=== PATIENT | female | born 1990 | race African-American/Black ===

== ENCOUNTER 2018-06-26 07:30 | Emergency (ER) | payer OTHER ==
[2018-06-26 07:45] VITALS: TEMP 98.5; BMI 29.2
[2018-06-26] MEDS ORDERED: METOCLOPRAMIDE HCL INJECTION 10 MG/2 ML VIAL IVPB ONE (08:49)
[2018-06-26] MEDS ORDERED: SODIUM CHLORIDE 1,000 ML IV STA (08:49)
--- NOTE | 2018-06-26 09:06 | PDOC ---
*Physical Exam - Vital Signs Last Vital Signs Temp Pulse Resp BP Pulse Ox 98.5 F 88 16 137/84 97 06/26/18 07:33 06/26/18 07:33 06/26/18 07:33 06/26/18 07:33 06/26/18 07:33 - Physical Exam Comments: 06/26/18 09:05 The patient was examined by [CATRACHO Bernabe] under my direct supervision. I personally evaluated the patient. I concur with the above findings and the plan of care. ED Treatment Course - LABORATORY CBC & Chemistry Diagram: 06/26/18 09:30 06/26/18 09:30 *DC/Admit/Observation/Transfer Diagnosis at time of Disposition: Hyperemesis - Discharge Dispostion Disposition: HOME Condition at time of disposition: Improved - Prescriptions Prescriptions: Metoclopramide HCl [Reglan] 10 mg PO Q8H #8 tablet - Referrals Referrals: Bouchra Morales MD [Primary Care Provider] - - Patient Instructions Printed Discharge Instructions: Hyperemesis Gravidarum Additional Instructions: Take medication as prescribed and follow-up with your OB in 2 days at next scheduled appointment - Post Discharge Activity
[2018-06-26] MEDS ORDERED: METOCLOPRAMIDE HCL INJECTION 10 MG/2 ML VIAL ONE (09:08)
--- NOTE | 2018-06-26 09:21 | PDOC ---
History of Present Illness - General Chief Complaint: Nausea/Vomiting Stated Complaint: NAUSEA/ 2 MONTHS Time Seen by Provider: 06/26/18 08:10 History Source: Patient - History of Present Illness Timing/Duration: reports: other Severity: Yes: severe Past History - Past Medical History Allergies/Adverse Reactions: Allergies Allergy/AdvReac Type Severity Reaction Status Date / Time No Known Drug Allergies Allergy Verified 06/26/18 07:32 Home Medications: Ambulatory Orders Albuterol Sulfate Inhaler - [Ventolin HFA Inhaler -] 1 puff IH ASDIR PRN Acetaminophen [Tylenol .Regular Strength -] 650 mg PO Q4H PRN #1 tablet Folic Acid 1 mg PO DAILY 06/26/18 Metoclopramide HCl [Reglan] 10 mg PO Q8H #8 tablet 06/26/18 Anemia: No Asthma: Yes Cancer: No Cardiac Disorders: No COPD: No Diabetes: No HTN: No Seizures: No Thyroid Disease: No - Reproductive History (#): 2 Para: 1 Spontaneous : 1 - Immunization History Immunization Up to Date: Yes - Suicide/Smoking/Psychosocial Hx Smoking Status: Yes Smoking History: Never smoked Have you smoked in the past 12 months: No Number of Cigarettes Smoked Daily: 0 Information on smoking cessation initiated: No Hx Alcohol Use: No Drug/Substance Use Hx: No Substance Use Type: None Hx Substance Use Treatment: No Review of Systems - Review of Systems Constitutional: No: Chills, Fever ABD/GI: Yes: Nausea, Vomiting. No: Diarrhea, Abdominal cramping : No: Burning, Dysuria, Discharge, Flank Pain, Hematuria *Physical Exam - Vital Signs Last Vital Signs Temp Pulse Resp BP Pulse Ox 98.5 F 88 16 137/84 97 06/26/18 07:33 06/26/18 07:33 06/26/18 07:33 06/26/18 07:33 06/26/18 07:33 - Physical Exam General Appearance: Yes: Appropriately Dressed. No: Apparent Distress HEENT: positive: Normal Voice Neck: positive: Supple Gastrointestinal/Abdominal: negative: Tender Integumentary: positive: Dry, Warm Neurologic: positive: Fully Oriented, Alert, Normal Mood/Affect ED Treatment Course - LABORATORY CBC & Chemistry Diagram: 06/26/18 09:30 06/26/18 09:30 Medical Decision Making - Medical Decision Making 06/26/18 08:57 28-year-old female, (s/p 1 elec AB), ~2 months , here with nausea, vomiting. Patient states for the past 3 weeks has had nausea, not improving with diclegis prescribed by her OB. Last night symptoms worsened and had intractable vomiting. Now feels dehydrated. Denies abdominal pain, vaginal bleeding or dysuria. States her OB is currently in the process of arranging for nausea pump as this sig helped in prior See exam Hyperemesis gravidarum Stable No issues w/ preg otherwise -labs -IVF -reglan -reassess 06/26/18 11:56 Labs unremarkable. Patient reports feeling significantly better after meds and able to tolerate po here. Feels well enough to go home. Prescription for small dose of reglan sent to pharmacy. Patient now informs me that her next OB appointment is in 2 days, will follow up *DC/Admit/Observation/Transfer Diagnosis at time of Disposition: Hyperemesis - Discharge Dispostion Disposition: HOME Condition at time of disposition: Improved - Prescriptions Prescriptions: Metoclopramide HCl [Reglan] 10 mg PO Q8H #8 tablet - Referrals Referrals: Bouchra Morales MD [Primary Care Provider] - - Patient Instructions Printed Discharge Instructions: Hyperemesis Gravidarum Additional Instructions: Take medication as prescribed and follow-up with your OB in 2 days at next scheduled appointment - Post Discharge Activity
[2018-06-26 09:36] LABS: BASO % 0.3 % (0-2.0); EOS % 0.1 % (0-4.5); HEMATOCRIT 37.3 % (32.4-45.2); HEMOGLOBIN 12.6 GM/dL (10.7-15.3); LYMPH % 10.1 % (8-40); MCHC 33.8 g/dl (32.0-36.0); MEAN PLT VOLUME 8.8 fl (7.5-11.1); MONO % 5.3 % (3.8-10.2); NEUT % 84.2 % (42.8-82.8); PLATELET COUNT 279 K/MM3 (134-434); RBC 4.19 M/mm3 (3.60-5.2); RDW 13.4 % (11.6-15.6); WHITE BLOOD COUNT 9.9 K/mm3 (4.0-10.0)
[2018-06-26 10:03] LABS: ALBUMIN 3.6 g/dl (3.4-5.0); ALK PHOS 72 U/L (45-117); ANION GAP 7 MMOL/L (8-16); BILIRUBIN,TOTAL 0.8 mg/dL (0.2-1); BLOOD UREA NITROGEN 7 mg/dL (7-18); CALCIUM 9.1 mg/dL (8.5-10.1); CHLORIDE 105 mmol/L (98-107); CO2 26 mmol/L (21-32); CREATININE 0.5 mg/dL (0.55-1.3); GLUCOSE,RANDOM 119 mg/dL (74-106); POTASSIUM 3.9 mmol/L (3.5-5.1); SGOT/AST 17 U/L (15-37); SGPT/ALT 23 U/L (13-61); SODIUM 137 mmol/L (136-145); TOT PROT 7.5 g/dl (6.4-8.2)
[2018-06-26 10:06] LABS: PH,URINE 5.5 (5.0-8.0); URINE APPEARANCE CLEAR; URINE BACTERIA 190.5 /hpf (NEGATIVE); URINE BILIRUBIN NEGATIVE (NEGATIVE); URINE CASTS 8 /hpf (0-8); URINE COLOR YELLOW; URINE GLUCOSE (UA) NEGATIVE (NEGATIVE); URINE KETONE 3+ (NEGATIVE); URINE LEUK ESTERASE NEGATIVE (NEGATIVE); URINE NITRITE NEGATIVE (NEGATIVE); URINE PROTEIN 1+ (NEGATIVE); URINE RBC 7 /hpf (0-4); URINE WBC 4 /hpf (0-5)
[2018-06-26 12:32] VITALS: BP 145/80; PULSE 86
== END 2018-06-26 12:27 | disposition home or self-care (01) ==
LOC: JER 07:30
PROC: 3E033GC Introduction of Other Therapeutic Substance into Peripheral Vein, Percutaneous Approach (ICD-10-PCS; principal; 2018-06-26)
PROC: 3E0337Z Introduction of Electrolytic and Water Balance Substance into Peripheral Vein, Percutaneous Approach (ICD-10-PCS; 2018-06-26)
DX: O26.892 Other specified pregnancy related conditions, second trimester (principal); Z3A.08 8 weeks gestation of pregnancy; O26.891 Other specified pregnancy related conditions, first trimester; R11.10 Vomiting, unspecified
CPT/HCPCS: 36415; 80053; 81003; 85025; 99282-25; J7030

== ENCOUNTER 2018-06-28 07:15 | Emergency (ER) | payer OTHER ==
[2018-06-28 07:28] VITALS: PULSE 65; BMI 29.2
[2018-06-28] MEDS ORDERED: SODIUM CHLORIDE 1,000 ML IV STA ×3 (07:47→11:09)
[2018-06-28] MEDS ORDERED: ONDANSETRON 4 MG/2 ML VIAL IVPUSH ONE (07:47)
[2018-06-28] MEDS ORDERED: ONDANSETRON 4 MG/2 ML VIAL ONE (07:50)
[2018-06-28 08:12] LABS: BASO % 0.2 % (0-2.0); EOS % 0.6 % (0-4.5); HEMATOCRIT 39.5 % (32.4-45.2); HEMOGLOBIN 12.9 GM/dL (10.7-15.3); LYMPH % 10.4 % (8-40); MCH 29.5 pg (25.7-33.7); MCHC 32.7 g/dl (32.0-36.0); MEAN CELL VOLUME 90.1 fl (80-96); NEUT % 82.8 % (42.8-82.8); PLATELET COUNT 274 K/MM3 (134-434); RBC 4.39 M/mm3 (3.60-5.2); RDW 13.8 % (11.6-15.6); WHITE BLOOD COUNT 12.2 K/mm3 (4.0-10.0)
[2018-06-28 08:48] LABS: ALBUMIN 3.8 g/dl (3.4-5.0); ALK PHOS 71 U/L (45-117); ANION GAP 11 MMOL/L (8-16); BILIRUBIN,TOTAL 1.4 mg/dL (0.2-1); BLOOD UREA NITROGEN 10 mg/dL (7-18); CALCIUM 9.8 mg/dL (8.5-10.1); CHLORIDE 102 mmol/L (98-107); CO2 25 mmol/L (21-32); CREATININE 0.6 mg/dL (0.55-1.3); GLUCOSE,RANDOM 124 mg/dL (74-106); MAGNESIUM 2.6 mg/dL (1.8-2.4); POTASSIUM 3.5 mmol/L (3.5-5.1); SGOT/AST 20 U/L (15-37); SGPT/ALT 26 U/L (13-61); SODIUM 138 mmol/L (136-145); TOT PROT 8.1 g/dl (6.4-8.2)
[2018-06-28 08:50] LABS: PH,URINE 5.5 (5.0-8.0); URINE APPEARANCE CLOUDY; URINE BILIRUBIN 1+ (NEGATIVE); URINE COLOR DK YELLOW; URINE GLUCOSE (UA) NEGATIVE (NEGATIVE); URINE KETONE 3+ (NEGATIVE); URINE LEUK ESTERASE NEGATIVE (NEGATIVE); URINE NITRITE NEGATIVE (NEGATIVE); URINE PROTEIN TRACE (NEGATIVE)
--- NOTE | 2018-06-28 10:03 | PDOC ---
History of Present Illness - General Chief Complaint: Nausea/Vomiting Stated Complaint: NAUSEA,VOMITING Time Seen by Provider: 06/28/18 07:45 History Source: Patient Exam Limitations: No Limitations - History of Present Illness Travel History: No Initial Comments: 06/28/18 09:55 28 y/o female currently 8 weeks presents to the ED with c/o continual n /v and weakness. Pt was seen here a few days ago for the same, was gov med, and d/c'd home. Pt states is pending anti-emetic infusion by her BUSINESS LINE MANAGER which should be set up in the next upcoming days. Pt has no abd pain, fever, urinary or back complaints. Pt states had exact s/s with previous pregnancies. Timing/Duration: reports: constant (nausea, intermittent nausea) Pain Radiation: denies: no radiation Activities at Onset: reports: none Aggravating Factors: improves with: None Alleviating Factors: improves with: None Past History - Travel Traveled outside of the country in the last 30 days: No Close contact w/someone who was outside of country & ill: No - Past Medical History Allergies/Adverse Reactions: Allergies Allergy/AdvReac Type Severity Reaction Status Date / Time No Known Drug Allergies Allergy Verified 06/28/18 07:25 Home Medications: Ambulatory Orders Albuterol Sulfate Inhaler - [Ventolin HFA Inhaler -] 1 puff IH ASDIR PRN Acetaminophen [Tylenol .Regular Strength -] 650 mg PO Q4H PRN #1 tablet Folic Acid 1 mg PO DAILY 06/26/18 Metoclopramide HCl [Reglan] 10 mg PO Q8H #8 tablet 06/26/18 Anemia: No Asthma: No Cancer: No Cardiac Disorders: No COPD: No Diabetes: No HTN: No Seizures: No Thyroid Disease: No - Reproductive History (#): 2 Para: 1 Spontaneous : 1 - Immunization History Immunization Up to Date: Yes - Suicide/Smoking/Psychosocial Hx Smoking Status: Yes Smoking History: Never smoked Have you smoked in the past 12 months: No Number of Cigarettes Smoked Daily: 0 Hx Alcohol Use: No Drug/Substance Use Hx: No Substance Use Type: None Hx Substance Use Treatment: No Patient Lives Alone: No Lives with/in: spouse/SO Review of Systems - Review of Systems Able to Perform ROS?: Yes Constitutional: Yes: Weakness HEENTM: No: Symptoms Reported Respiratory: No: Symptoms reported Cardiac (ROS): No: Symptoms Reported ABD/GI: Yes: Nausea, Poor Appetite, Poor Fluid Intake, Vomiting Musculoskeletal: No: Symptoms Reported Integumentary: No: Symptoms Reported Neurological: No: Symptoms reported Endocrine: No: Symptoms Reported *Physical Exam - Vital Signs Last Vital Signs Temp Pulse Resp BP Pulse Ox 98.2 F 65 17 135/82 99 06/28/18 07:25 06/28/18 07:25 06/28/18 07:25 06/28/18 07:25 06/28/18 07:25 - Physical Exam General Appearance: Yes: Nourished, Appropriately Dressed. No: Apparent Distress HEENT: positive: EOMI, LEV, TMs Normal, Pharynx Normal (dry) Neck: positive: Supple Respiratory/Chest: positive: Lungs Clear, Normal Breath Sounds. negative: Respiratory Distress Cardiovascular: positive: Regular Rhythm, Regular Rate. negative: Murmur Gastrointestinal/Abdominal: positive: Soft. negative: Tenderness Musculoskeletal: negative: CVA Tenderness Extremity: positive: Normal Capillary Refill. negative: Pedal Edema Integumentary: positive: Normal Color, Warm, Moist Neurologic: positive: Motor Strength 5/5 (ambulatory) ED Treatment Course - LABORATORY CBC & Chemistry Diagram: 06/28/18 07:54 06/28/18 07:54 - ADDITIONAL ORDERS Additional order review: Laboratory Results 06/28/18 06/28/18 07:54 07:49 Sodium 138 Potassium 3.5 Chloride 102 Carbon Dioxide 25 Anion Gap 11 BUN 10 Creatinine 0.6 Creat Clearance w eGFR 119.04 Random Glucose 124 H Calcium 9.8 Magnesium 2.6 H Total Bilirubin 1.4 H AST 20 ALT 26 Alkaline Phosphatase 71 Total Protein 8.1 Albumin 3.8 Urine Color Dk yellow Urine Appearance Cloudy Urine pH 5.5 Ur Specific [place] 1.026 Urine Protein Trace Urine Glucose (UA) Negative Urine Ketones 3+ H Urine Blood Negative Urine Nitrite Negative Urine Bilirubin 1+ H Urine Urobilinogen 1.0 Ur Leukocyte Esterase Negative 06/28/18 07:54 RBC 4.39 MCV 90.1 MCHC 32.7 RDW 13.8 MPV 9.0 Neutrophils % 82.8 Lymphocytes % 10.4 Monocytes % 6.0 Eosinophils % 0.6 D Basophils % 0.2 - Medications Given in the ED: ED Medications Discontinued Medications Generic Name Dose Route Start Last Admin Trade Name Dorian PRN Reason Stop Dose Admin Sodium Chloride 1,000 mls @ 1,000 mls/hr 06/28/18 07:47 06/28/18 08:06 Normal Saline - IV 06/28/18 08:46 1,000 mls/hr ASDIR STA Administration Sodium Chloride 1,000 mls @ 1,000 mls/hr 06/28/18 07:57 06/28/18 09:14 Normal Saline - IV 06/28/18 08:56 1,000 mls/hr ASDIR STA Administration Ondansetron HCl 4 mg 06/28/18 07:47 06/28/18 08:06 Zofran Injection IVPUSH 06/28/18 07:48 4 mg ONCE ONE Administration Medical Decision Making - Medical Decision Making 06/28/18 10:05 CC: n/v, poor appetite, 2 months Exam: pt appears dry and is actively heaving upon my arrival Plan: labs, urine, ivf, antiemetics 06/28/18 10:08 Laboratory Tests 06/28/18 06/28/18 06/28/18 07:49 07:54 07:54 WBC 12.2 H Hgb 12.9 Hct 39.5 Absolute Neuts (auto) 10.1 H Sodium 138 Anion Gap 11 Creatinine 0.6 Random Glucose 124 H Calcium 9.8 Total Bilirubin 1.4 H ALT 26 Alkaline Phosphatase 71 Total Protein 8.1 Albumin 3.8 Urine Color Dk yellow Urine Appearance Cloudy Urine pH 5.5 Ur Specific [place] 1.026 Urine Protein Trace Urine Glucose (UA) Negative Urine Ketones 3+ H Urine Blood Negative Urine Nitrite Negative Urine Bilirubin 1+ H Ur Leukocyte Esterase Negative 06/28/18 10:09 Lipase added, No active vomiting noted 06/28/18 11:37 Pt ordered for 3ltr along with reglan 06/28/18 13:37 With Reglan patient states feeling much better. Patient tolerating ice chips and apple juice. Discharge home with Reglan when necessary until she starts the infusion program *DC/Admit/Observation/Transfer Diagnosis at time of Disposition: Hyperemesis - Discharge Dispostion Disposition: HOME Condition at time of disposition: Improved - Referrals Referrals: Bouchra Morales MD [Primary Care Provider] - - Patient Instructions Printed Discharge Instructions: DI for Hyperemesis Gravidarum Additional Instructions: Eat small frequent meals throughout the day. avoid spicy greasy and acidy food. Use Reglan as needed for nausea. - Post Discharge Activity
[2018-06-28 10:21] LABS: LIPASE 240 U/L (73-393)
[2018-06-28] MEDS ORDERED: METOCLOPRAMIDE HCL INJECTION 10 MG/2 ML VIAL ONE (11:03)
[2018-06-28] MEDS ORDERED: METOCLOPRAMIDE HCL INJECTION 10 MG/2 ML VIAL IVPB ONE (11:09)
[2018-06-28 13:12] VITALS: BP 131/73; TEMP 98.1
== END 2018-06-28 14:08 | disposition home or self-care (01) ==
LOC: JER 07:15
PROC: 3E0337Z Introduction of Electrolytic and Water Balance Substance into Peripheral Vein, Percutaneous Approach (ICD-10-PCS; principal; 2018-06-28)
PROC: 3E033GC Introduction of Other Therapeutic Substance into Peripheral Vein, Percutaneous Approach (ICD-10-PCS; 2018-06-28)
DX: O26.891 Other specified pregnancy related conditions, first trimester (principal); O21.0 Mild hyperemesis gravidarum; Z3A.08 8 weeks gestation of pregnancy
CPT/HCPCS: 36415; 80053; 81003; 83690; 83735; 85025; 87086; 99284-25; J7030

== ENCOUNTER 2018-07-29 10:36 | Emergency (ER) | payer OTHER ==
[2018-07-29 10:45] VITALS: BMI 26.9
[2018-07-29] MEDS ORDERED: SODIUM CHLORIDE 1,000 ML IV STA ×3 (10:58→14:01)
[2018-07-29] MEDS ORDERED: ONDANSETRON 4 MG/2 ML VIAL IVPUSH ONE (10:58)
--- NOTE | 2018-07-29 11:08 | PDOC ---
History of Present Illness - General Chief Complaint: Nausea/Vomiting Stated Complaint: NAUSEA/VOMITING Time Seen by Provider: 07/29/18 10:58 History Source: Patient Exam Limitations: No Limitations - History of Present Illness Travel History: No Initial Comments: 07/29/18 11:00 28-year-old female currently 13 weeks presents the emergency with continual nausea despite having Reglan infusion pump placed approximately 3 weeks ago. Patient has notify her REVERSE UNIT OPERATOR home she says has not offered her another option except for continuation of the pump. Patient states has been drinking fluids but unable to tolerate solids and is now having decreased bowel movements. Patient has no urinary complaints, fever, chills, abd pain, or discharge. Timing/Duration: reports: constant Pain Radiation: reports: no radiation Activities at Onset: reports: none Aggravating Factors: improves with: None Alleviating Factors: improves with: None Past History - Travel Traveled outside of the country in the last 30 days: No Close contact w/someone who was outside of country & ill: No - Past Medical History Allergies/Adverse Reactions: Allergies Allergy/AdvReac Type Severity Reaction Status Date / Time No Known Drug Allergies Allergy Verified 06/28/18 07:25 Home Medications: Ambulatory Orders Albuterol Sulfate Inhaler - [Ventolin HFA Inhaler -] 1 puff IH ASDIR PRN Acetaminophen [Tylenol .Regular Strength -] 650 mg PO Q4H PRN #1 tablet Folic Acid 1 mg PO DAILY 06/26/18 Metoclopramide HCl [Reglan] 10 mg PO Q8H #8 tablet 06/26/18 Anemia: No Asthma: No Cancer: No Cardiac Disorders: No COPD: No Diabetes: No HTN: No Seizures: No Thyroid Disease: No - Reproductive History (#): 2 Para: 1 Spontaneous : 1 - Immunization History Immunization Up to Date: Yes - Suicide/Smoking/Psychosocial Hx Smoking Status: Yes Smoking History: Never smoked Have you smoked in the past 12 months: No Number of Cigarettes Smoked Daily: 0 Information on smoking cessation initiated: No Hx Alcohol Use: No Drug/Substance Use Hx: No Substance Use Type: None Hx Substance Use Treatment: No Patient Lives Alone: No Lives with/in: spouse/SO Review of Systems - Review of Systems Able to Perform ROS?: No Is the patient limited Luxembourgish proficient: No Constitutional: Yes: Loss of Appetite HEENTM: No: Symptoms Reported Respiratory: No: Symptoms reported Cardiac (ROS): No: Symptoms Reported ABD/GI: Yes: Nausea, Vomiting. No: Abdominal cramping Musculoskeletal: No: Symptoms Reported Integumentary: No: Symptoms Reported Neurological: No: Symptoms reported Endocrine: No: Symptoms Reported *Physical Exam - Vital Signs Last Vital Signs Temp Pulse Resp BP Pulse Ox 98.2 F 104 H 16 149/97 96 07/29/18 10:42 07/29/18 10:42 07/29/18 10:42 07/29/18 10:42 07/29/18 10:42 - Physical Exam General Appearance: Yes: Nourished, Appropriately Dressed. No: Apparent Distress HEENT: positive: EOMI, LEV, TMs Normal, Pharynx Normal. negative: Pale Conjunctivae Neck: positive: Supple Respiratory/Chest: positive: Lungs Clear, Normal Breath Sounds. negative: Respiratory Distress, Accessory Muscle Use Cardiovascular: positive: Regular Rhythm, Tachycardia. negative: Murmur Gastrointestinal/Abdominal: positive: Soft. negative: Tenderness Extremity: positive: Normal Inspection Integumentary: positive: Normal Color, Warm, Moist Neurologic: positive: Motor Strength 5/5 (ambulatory) ED Treatment Course - LABORATORY CBC & Chemistry Diagram: 07/29/18 11:29 07/29/18 11:29 Medical Decision Making - Medical Decision Making 07/29/18 11:08 CC: n/v intermittently x 6 weeks now with reglan infusion pump. Pt states mod relief with pump but for the last few days has been vomiting and dry heaving mainly saliva Exam: slightly tachy, abd non tender Plan: labs, urine, ivf, antiemetics 07/29/18 14:02 Laboratory Tests 07/29/18 07/29/18 07/29/18 11:29 11:29 13:10 WBC 9.5 Hgb 13.2 Hct 39.8 Absolute Neuts (auto) 7.4 Sodium 134 L Potassium 3.3 L Chloride 96 L BUN 5 L Creatinine 0.5 L Random Glucose 81 Calcium 9.1 Magnesium 2.0 Total Bilirubin 1.2 H AST 27 ALT 50 Lipase 322 Urine Ketones 4+ H Urine Blood Negative Urine Bilirubin 1+ H Urine Urobilinogen 1.0 Ur Leukocyte Esterase Negative Pt ordered for k dur along w/ 2 addit liters of IVF. Pt also given po challenge w/ unsalted saltines 07/29/18 16:07 Patient tolerated saltine crackers and ice chips. Patient will be discharged home with Zofran along with her Reglan infusion pump. *DC/Admit/Observation/Transfer Diagnosis at time of Disposition: Hyperemesis gravidarum - Discharge Dispostion Disposition: HOME Condition at time of disposition: Improved - Referrals Referrals: Bouchra Morales MD [Primary Care Provider] - - Patient Instructions Printed Discharge Instructions: DI for Hyperemesis Gravidarum Additional Instructions: Please take Zofran as needed for nausea and please follow-up with ENVIRONMENTAL ENGINEERING ASSISTANT. Eats small frequent meals that are bland and easy on the stomach. Return to the emergency room if your symptoms worsen despite above recommendations. - Post Discharge Activity
[2018-07-29 11:55] LABS: BASO % 0.3 % (0-2.0); EOS % 1.2 % (0-4.5); HEMATOCRIT 39.8 % (32.4-45.2); HEMOGLOBIN 13.2 GM/dL (10.7-15.3); LYMPH % 12.6 % (8-40); MCH 29.6 pg (25.7-33.7); MCHC 33.2 g/dl (32.0-36.0); MEAN PLT VOLUME 9.4 fl (7.5-11.1); MONO % 7.9 % (3.8-10.2); PLATELET COUNT 281 K/MM3 (134-434); RBC 4.47 M/mm3 (3.60-5.2); RDW 13.6 % (11.6-15.6); WHITE BLOOD COUNT 9.5 K/mm3 (4.0-10.0)
[2018-07-29 13:00] LABS: ALBUMIN 3.4 g/dl (3.4-5.0); ALK PHOS 74 U/L (45-117); ANION GAP 13 MMOL/L (8-16); BILIRUBIN,TOTAL 1.2 mg/dL (0.2-1); BLOOD UREA NITROGEN 5 mg/dL (7-18); CALCIUM 9.1 mg/dL (8.5-10.1); CHLORIDE 96 mmol/L (98-107); CO2 25 mmol/L (21-32); CREATININE 0.5 mg/dL (0.55-1.3); GLUCOSE,RANDOM 81 mg/dL (74-106); LIPASE 322 U/L (73-393); POTASSIUM 3.3 mmol/L (3.5-5.1); SGOT/AST 27 U/L (15-37); SGPT/ALT 50 U/L (13-61); SODIUM 134 mmol/L (136-145); TOT PROT 7.4 g/dl (6.4-8.2)
[2018-07-29 13:38] LABS: PH,URINE 5.5 (5.0-8.0); URINE APPEARANCE CLEAR; URINE BILIRUBIN 1+ (NEGATIVE); URINE COLOR DK YELLOW; URINE GLUCOSE (UA) NEGATIVE (NEGATIVE); URINE KETONE 4+ (NEGATIVE); URINE LEUK ESTERASE NEGATIVE (NEGATIVE); URINE NITRITE NEGATIVE (NEGATIVE); URINE PROTEIN NEGATIVE (NEGATIVE)
[2018-07-29] MEDS ORDERED: KCL 10 MEQ IVPB 10 MEQ/100 ML INFUS.BAG IVPB SCH (13:45)
[2018-07-29] MEDS ORDERED: POTASSIUM CHLORIDE TABS 20 MEQ TABLET.ER (FP) PO ONE ×2 (14:01→14:29)
[2018-07-29 18:09] VITALS: BP 119/78; PULSE 80; TEMP 99
== END 2018-07-29 18:00 | disposition home or self-care (01) ==
LOC: JER 10:36
PROC: 3E0337Z Introduction of Electrolytic and Water Balance Substance into Peripheral Vein, Percutaneous Approach (ICD-10-PCS; principal; 2018-07-29)
PROC: 3E0337Z Introduction of Electrolytic and Water Balance Substance into Peripheral Vein, Percutaneous Approach (ICD-10-PCS; 2018-07-29)
PROC: 3E033GC Introduction of Other Therapeutic Substance into Peripheral Vein, Percutaneous Approach (ICD-10-PCS; 2018-07-29)
DX: O26.891 Other specified pregnancy related conditions, first trimester (principal); O21.1 Hyperemesis gravidarum with metabolic disturbance; Z3A.13 13 weeks gestation of pregnancy
CPT/HCPCS: 36415; 80053; 81003; 83690; 83735; 85025; 87086; 99282-25; J7030

== ENCOUNTER 2019-01-28 07:05 | Inpatient (IN) | payer OTHER ==
[2019-01-28 08:33] VITALS: BMI 30.1
[2019-01-28] MEDS ORDERED: CITRIC ACID/SODIUM CITRATE 30 ML UNIT-DOSE CUP PO ONE (08:41)
--- NOTE | 2019-01-28 08:41 | HP ---
Past Medical History - Primary Care Physician PCP:: Carolyn Arguello - Admission Chief Complaint: 29yo P1 @ 39.6wks with h/o prior c/section for failed induction , presents for repeat c/section, no VB, no LOF, no VB History of Present Illness: 1. Prior c/section 2. Sever hyperemesis - was on Reglan pump 3. Mild Asthma - no episodes during 4. Flu shot declined History Source: Patient, Medical Record Limitations to Obtaining History: No Limitations - Past Medical History Pulmonary: Yes: Asthma ...: 3 ...Para: 1 (2012 c/section 8.7lb) ...Term: 1 ...: 0 ...Spon : 0 ...Induced : 1 ...EDC by [facility]: 01/29/19 - Past Surgical History Past Surgical History: Yes: Hx Myomectomy: No Hx Transabdominal Cerclage: No Additional Surgical History: Liposuction. SAB x 1 - Smoking History Smoking history: Never smoked Have you smoked in the past 12 months: No Aproximately how many cigarettes per day: 0 - Alcohol/Substance Use Hx Alcohol Use: No History of Substance Use: reports: None - Social History Usual Living Arrangement: Yes: Alone History of Recent Travel: Yes Home Medications - Allergies Allergies/Adverse Reactions: Allergies Allergy/AdvReac Type Severity Reaction Status Date / Time No Known Drug Allergies Allergy Verified 01/28/19 07:50 - Home Medications Home Medications: Ambulatory Orders Comb No.42/Folic Acid [Prena1 Chew Tablet] 1.4 mg PO DAILY 01/28/19 Review of Systems - Review of Systems Constitutional: reports: No Symptoms Eyes: reports: No Symptoms HENT: reports: No Symptoms Neck: reports: No Symptoms Cardiovascular: reports: No Symptoms Respiratory: reports: No Symptoms Gastrointestinal: reports: No Symptoms Genitourinary: reports: No Symptoms Breasts: reports: No Symptoms Reported Musculoskeletal: reports: No Symptoms Integumentary: reports: No Symptoms Neurological: reports: No Symptoms Endocrine: reports: No Symptoms Hematology/Lymphatic: reports: No Symptoms Psychiatric: reports: No Symptoms Physical Exam - Maternity Vital Signs: Vital Signs Temperature 97.8 F 01/28/19 07:55 Pulse Rate 113 H 01/28/19 07:55 Respiratory Rate 20 01/28/19 07:55 Blood Pressure 110/63 01/28/19 07:55 O2 Sat by Pulse Oximetry (%) Constitutional: Yes: Well Nourished, No Distress, Calm Eyes: Yes: WNL, Conjunctiva Clear HENT: Yes: WNL, Atraumatic, Normocephalic Neck: Yes: WNL, Supple, Trachea Midline Cardiovascular: Yes: WNL, Regular Rate and Rhythm Lungs: Clear to auscultation Breast(s): Yes: WNL - Abdominal Exam/OB Fundal Height: 39 Number of Fetuses: Single Presentation: Vertex Contractions: No Monitor Mode: External Heart Rate (range): 140 Heart Rate Location: Midline Category: I Accelerations: Uniform Decelerations: None - Vaginal Exam/OB Vaginal Bleediing: No Amniotic Membrane Status: Intact Presentation: Vertex/Position - Physical Exam Musculoskeletal: Yes: WNL Extremities: Yes: WNL Edema: No Integumentary: Yes: WNL Deep Tendon Reflex Grade: Normal +2 ...Motor Strength: WNL Psychiatric: Yes: WNL, Alert, Oriented Assessment/Plan 29 yo P1 with h/o prior c/section for repeat c/section Procedure explained Consent signed All questions answered Patient is NPO IVF, Labs Placenta posterior Hct - 28 2U PRBC cross matched Anesthesia is aware
[2019-01-28] MEDS ORDERED: ELECTROLYTE-148 SOLN 1,000 ML IV SCH (08:45)
[2019-01-28] MEDS ORDERED: OXYTOCIN 20 UNITS in 0.9% NS 20 UNIT/1,000 ML INFUS.BAG IV ONE ×2 (09:21→11:41)
[2019-01-28] MEDS ORDERED: morphine SULFATE/PF 0.5 MG/ML (2cc Syringe - QUVA) ONE (09:23)
[2019-01-28] MEDS ORDERED: ePHEDrine SULFATE 50 MG/1 ML AMPULE ONE (09:23)
[2019-01-28] MEDS ORDERED: PHENYLEPHRINE HCL 10 MG/1 ML SINGLE DOSE VIAL ONE (09:36)
[2019-01-28] MEDS ORDERED: ceFAZolin SODIUM 1 GM VIAL ONE (09:43)
[2019-01-28] MEDS ORDERED: oxyCODONE HCL 5 MG TABLET PO PRN (11:05)
[2019-01-28] MEDS ORDERED: METHYLERGONOVINE MALEATE 0.2 MG/1 ML AMP IM PRN (11:05)
[2019-01-28] MEDS ORDERED: diphenhydrAMINE HCL 25 MG CAPSULE (FP) PO PRN (11:05)
[2019-01-28] MEDS ORDERED: BENZOCAINE 20% 57 GM BOTTLE TP PRN (11:05)
[2019-01-28] MEDS ORDERED: BENZOCAINE 28 GM HEMORRHOIDAL OINTMENT PR PRN (11:05)
[2019-01-28] MEDS ORDERED: WITCH HAZEL 50% (TUCKS) 40 PAD/JAR PAD TP PRN (11:05)
--- NOTE | 2019-01-28 11:05 | OP ---
Operative Note - Note: Operative Date: 01/28/19 Pre-Operative Diagnosis: 29yo P1 with prior c/section for elective repeat Operation: Repeat c/section Findings: Viable female, 8lb, 10oz, APGARs 9/9 Intact, normal placenta Post-Operative Diagnosis: Same as Pre-op Surgeon: Carolyn Arguello Residential Supervisor: Robbie Vincent Anesthesiologist/BUILDING ESTIMATOR: Doretha Cali Anesthesia: Spinal Specimens Removed: Placenta Estimated Blood Loss (mls): 500 Drains, Volume Out (mls): 300 Fluid Volume Replaced (mls): 1,300 Operative Report Dictated: Yes
[2019-01-28] MEDS ORDERED: DEXTROSE 5%-LACTATED RINGERS 1,000 ML IV SCH (11:15)
[2019-01-28] MEDS ORDERED: OXYTOCIN 20 UNITS in 0.9% NS 20 UNIT/1,000 ML INFUS.BAG IV SCH (11:15)
--- NOTE | 2019-01-28 11:16 | PN ---
Delivery - Delivery Section: Repeat, Low Flap Transverse Type of Anesthesia: Spinal Episiotomy/Laceration: None EBL (cc): 500 Delivery, Single - Stages of Labor Date of Delivery: 01/28/19 Time of Delivery: 09:59 Date Placenta Delivered: 01/28/19 Time Placenta Delivered: 10:00 Placenta: Yes: Expressed - Condition of Wellness Educator/Traveling Clerk Present: Yes Name: John Shearer Infant Gender: Female Weight: 8 lb 10 oz Position: Right, OA Total Hours ROM (Hrs/Mins): 2 min - 5 Minutes Total Score: 9 1 Minute Total Score: 9 - Sandwich Feeding Plan Initial Plan: Elected not to breastfeed exclusively throughout hospitalization Benefits of Exclusively reinforced: Yes Remarks - Remarks Remarks: Uncomplicated delivery of head, shoulders and placenta All layer closure
[2019-01-28] MEDS ORDERED: ONDANSETRON 4 MG/2 ML VIAL IVPUSH PRN (11:33)
[2019-01-28] MEDS ORDERED: IBUPROFEN 800 MG/8 ML IJ IVPB ONE (11:50)
[2019-01-28] MEDS: IBUPROFEN 800 MG/8 ML IJ IVPB PRN ×2 (11:55→19:03)
[2019-01-28 16:14] LABS: BASO % 0.4 % (0-2.0); EOS % 0.2 % (0-4.5); HEMATOCRIT 26.3 % (32.4-45.2); HEMOGLOBIN 8.2 GM/dL (10.7-15.3); LYMPH % 17.1 % (8-40); MCH 23.7 pg (25.7-33.7); MCHC 31.3 g/dl (32.0-36.0); MEAN CELL VOLUME 75.8 fl (80-96); MONO % 9.2 % (3.8-10.2); NEUT % 73.1 % (42.8-82.8); PLATELET COUNT 221 K/MM3 (134-434); RBC 3.47 M/mm3 (3.60-5.2); RDW 19.6 % (11.6-15.6); WHITE BLOOD COUNT 10.2 K/mm3 (4.0-10.0)
[2019-01-28 16:35] LABS: INR 0.99 (0.83-1.09); PROTHROMBIN TIME (PATIENT) 11.7 SEC (9.7-13.0)
[2019-01-28 16:38] LABS: ACTIVATED PTT 28.8 SECONDS (25.2-36.5)
[2019-01-28] MEDS: CEFAZOLIN 1 GM/D5W 1 GM/50 ML BAG IVPB SCH (18:27)
[2019-01-29] MEDS: CEFAZOLIN 1 GM/D5W 1 GM/50 ML BAG IVPB SCH (02:29)
[2019-01-29] MEDS: IBUPROFEN 800 MG/8 ML IJ IVPB PRN (05:46)
--- NOTE | 2019-01-29 08:43 | PN ---
Post Progress Note - Subjective Subjective: Patient without acute complaints. Reports tolerating oral intake without nausea or vomiting. Ambulating without dizziness. Denies fevers or chills. Pain well controlled with oral pain medication. without difficulty. Passing flatus. Post Day: 1 Type of Delivery: Repeat C/S Vital Signs: Vital Signs Temperature 98 F 01/29/19 06:00 Pulse Rate 93 H 01/29/19 06:00 Respiratory Rate 18 01/29/19 08:00 Blood Pressure 120/71 01/29/19 06:00 O2 Sat by Pulse Oximetry (%) 100 01/28/19 11:40 Breast Exam: Yes: Soft Uterus: Yes: Fundus Firm Incision: Yes: Dressing dry and intact Abdomen/GI: Yes: Abdomen soft, Tolerating PO Lochia: Yes: Rubra Lochia, amount: Small Extremities: Yes: Calves non-tender Activity: Ambulating - Labs Labs: CBC WBC 10.2 K/mm3 (4.0-10.0) H 01/28/19 15:48 RBC 3.47 M/mm3 (3.60-5.2) L 01/28/19 15:48 Hgb 8.2 GM/dL (10.7-15.3) L 01/28/19 15:48 Hct 26.3 % (32.4-45.2) L 01/28/19 15:48 MCV 75.8 fl (80-96) L 01/28/19 15:48 MCH 23.7 pg (25.7-33.7) L 01/28/19 15:48 MCHC 31.3 g/dl (32.0-36.0) L 01/28/19 15:48 RDW 19.6 % (11.6-15.6) H 01/28/19 15:48 Plt Count 221 K/MM3 (134-434) 01/28/19 15:48 MPV 9.0 fl (7.5-11.1) 01/28/19 15:48 Absolute Neuts (auto) 7.5 K/mm3 (1.5-8.0) 01/28/19 15:48 Neutrophils % 73.1 % (42.8-82.8) 01/28/19 15:48 Lymphocytes % 17.1 % (8-40) D 01/28/19 15:48 Monocytes % 9.2 % (3.8-10.2) 01/28/19 15:48 Eosinophils % 0.2 % (0-4.5) D 01/28/19 15:48 Basophils % 0.4 % (0-2.0) 01/28/19 15:48 Nucleated RBC % 0 % (0-0) 01/28/19 15:48 Assessment/Plan 29 yo P2 with h/o prior c/section s/p repeat LST c/section Doing well VSS, Afebrile H/H wnl expected decline Rhpos no need for RhoGam Continue routine PostOp care
[2019-01-29] MEDS ORDERED: FLU VACC QS2019-20(6MOS UP)/PF 60 MCG/0.5 ML SYRINGE IM ONE (08:45)
[2019-01-29] MEDS ORDERED: FLU VACCINE QUAD 60 MCG/0.5 ML (MDV 19-20) IM ONE (10:00)
[2019-01-29] MEDS ORDERED: BISACODYL 10 MG SUPP.RECT PR PRN (11:05)
[2019-01-29] MEDS: IBUPROFEN 600 MG TABLET (FP) PO PRN (14:08)
[2019-01-29] MEDS: oxyCODONE HCL 5 MG TABLET PO PRN (14:08)
[2019-01-29] MEDS: SIMETHICONE 80 MG TAB.CHEW (FP) PO PRN (14:09)
--- NOTE | 2019-01-29 14:36 | PN ---
Progress Note (short form) - Note Progress Note: Anesthesia POD#1 S/P Repeat C/Section under Spinal and Duramorph VSS,no N/V,bearable pain, legs are strong. Grace Infante MD.
--- NOTE | 2019-01-29 20:52 | OP ---
DATE OF OPERATION: 01/28/2019 PREOPERATIVE DIAGNOSIS: A 29-year-old para 1 with prior section for elective repeat section. PROCEDURE PERFORMED: Repeat lower segment transverse section. FINDINGS: Viable female, 8 pounds 10 ounces, Apgars 9 and 9; present. Normal intact placenta removed. POSTOPERATIVE DIAGNOSIS: A 29-year-old para 1 with prior section for elective repeat section. SURGEON: Carolyn Arguello MD DIAL MARKER: Robbie Vincent MD ANESTHESIOLOGIST: Doretha Cali, REF-DO ANESTHESIA: Spinal. DESCRIPTION OF OPERATIVE PROCEDURE: After assuring informed consent, the patient was brought to the operating room where she was placed in dorsal supine position with left lateral tilt. Abdomen was prepped and draped in the sterile fashion. A Pfannenstiel skin incision was created with a scalpel and carried down to the level of the fascia with Bovie cautery. The fascia was dissected inferiorly and then superiorly with Bovie cautery. Muscle was split in the midline and dissected all the way down the symphysis pubis with good visualization of underlying organs. The peritoneum was incised with a scalpel, extended superiorly and inferiorly and stretched. The lower edge of the [place] was placed to retract the bladder. The lower uterine segment was found to be thin and was incised with the scalpel and extended bilaterally with bandage scissors. The 's head was delivered atraumatically with MILAGRO presentation. The shoulders were delivered atraumatically as well. The infant was fully delivered. The cord was clamped and cut. The infant was handed to the waiting automotive services manager. The placenta was removed manually and expressed. The uterus was cleared of clots and debris. The cervix was opened with ring forceps to allow for the lochia to come out. The uterine incision was repaired with 0-Biosyn in running locking fashion. A second imbricating layer was created with 0-Biosyn as well. Excellent hemostasis was noted. The abdomen was irrigated and the peritoneum was subsequently closed with 0-Biosyn. Muscle was reapproximated at the midline. Prior to closing the peritoneum, normal tubes and ovaries were visualized as well. Muscle was reapproximated at the midline. Fascia was closed with 0-Biosyn. Three subcutaneous sutures were placed to reapproximate the subcutaneous tissue and 4-0 Monocryl was used to close the skin. Excellent hemostasis was noted throughout. Estimated blood loss was 500 mL. The patient put out 300 mL of urine and received 1300 mL of IV fluids. All instrument and sponge counts were correct x2. The patient tolerated the procedure well and was brought to the recovery room in stable condition. Jaxon BARNES/[id number]
[2019-01-30] MEDS: oxyCODONE HCL 5 MG TABLET PO PRN ×3 (00:37→13:47)
--- NOTE | 2019-01-30 07:34 | PN ---
Post Progress Note - Subjective Subjective: Patient without acute complaints. Reports tolerating oral intake without nausea or vomiting. Ambulating without dizziness. Denies fevers or chills. Pain well controlled with oral pain medication. without difficulty. Passing flatus. Post Day: 2 Type of Delivery: Repeat C/S Vital Signs: Vital Signs Temperature 98.1 F 01/29/19 21:09 Pulse Rate 89 01/29/19 21:09 Respiratory Rate 18 01/29/19 21:09 Blood Pressure 111/60 01/29/19 21:09 O2 Sat by Pulse Oximetry (%) 100 01/29/19 21:00 Breast Exam: Yes: Soft Uterus: Yes: Fundus Firm, Fundus below umbilicus Abdomen/GI: Yes: Abdomen soft, Passing flatus, Tolerating PO. No: Abdominal Distention, Tender Lochia: Yes: Rubra Lochia, amount: Small Extremities: No: Edema Activity: Ambulating - Labs Labs: CBC WBC 10.2 K/mm3 (4.0-10.0) H 01/28/19 15:48 RBC 3.47 M/mm3 (3.60-5.2) L 01/28/19 15:48 Hgb 8.2 GM/dL (10.7-15.3) L 01/28/19 15:48 Hct 26.3 % (32.4-45.2) L 01/28/19 15:48 MCV 75.8 fl (80-96) L 01/28/19 15:48 MCH 23.7 pg (25.7-33.7) L 01/28/19 15:48 MCHC 31.3 g/dl (32.0-36.0) L 01/28/19 15:48 RDW 19.6 % (11.6-15.6) H 01/28/19 15:48 Plt Count 221 K/MM3 (134-434) 01/28/19 15:48 MPV 9.0 fl (7.5-11.1) 01/28/19 15:48 Absolute Neuts (auto) 7.5 K/mm3 (1.5-8.0) 01/28/19 15:48 Neutrophils % 73.1 % (42.8-82.8) 01/28/19 15:48 Lymphocytes % 17.1 % (8-40) D 01/28/19 15:48 Monocytes % 9.2 % (3.8-10.2) 01/28/19 15:48 Eosinophils % 0.2 % (0-4.5) D 01/28/19 15:48 Basophils % 0.4 % (0-2.0) 01/28/19 15:48 Nucleated RBC % 0 % (0-0) 01/28/19 15:48 Assessment/Plan 29 yo POD # 2 s/p repeat CD, afebrile, vital signs stable, asymptomatic anemia, doing well 1. Continue routine postoperative care. 2. Encourage ambulation and incentive spirometer use 3. Continue oral pain medication 4. Will continue to monitor for signs of worsening anemia 5. Anticipate discharge home postoperative day #3 or #4
[2019-01-30] MEDS: SIMETHICONE 80 MG TAB.CHEW (FP) PO PRN (13:48)
[2019-01-30] MEDS: IBUPROFEN 600 MG TABLET (FP) PO PRN (13:48)
[2019-01-30] MEDS ORDERED: SENNOSIDES/DOCUSATE COMBO (SENNA PLUS) TABLET (UD) PO PRN (22:00)
[2019-01-31 07:26] LABS: BASO % 0.5 % (0-2.0); EOS % 3.2 % (0-4.5); HEMATOCRIT 23.1 % (32.4-45.2); HEMOGLOBIN 7.3 GM/dL (10.7-15.3); MCH 23.9 pg (25.7-33.7); MCHC 31.6 g/dl (32.0-36.0); MEAN CELL VOLUME 75.8 fl (80-96); MEAN PLT VOLUME 8.4 fl (7.5-11.1); MONO % 11.6 % (3.8-10.2); NEUT % 61.7 % (42.8-82.8); PLATELET COUNT 241 K/MM3 (134-434); RBC 3.05 M/mm3 (3.60-5.2); RDW 19.9 % (11.6-15.6); WHITE BLOOD COUNT 4.9 K/mm3 (4.0-10.0)
--- NOTE | 2019-01-31 07:53 | DS ---
Physical Exam-DELIVERY PERSON Vital Signs: Vital Signs Temperature 97.7 F 01/30/19 21:19 Pulse Rate 78 01/30/19 21:19 Respiratory Rate 18 01/30/19 21:19 Blood Pressure 114/57 L 01/30/19 21:19 O2 Sat by Pulse Oximetry (%) 100 01/29/19 21:00 Constitutional: Yes: Well Nourished, No Distress, Calm Eyes: Yes: WNL, Conjunctiva Clear, EOM Intact HENT: Yes: WNL, Atraumatic, Normocephalic Neck: Yes: WNL, Supple, Trachea Midline Cardiovascular: Yes: WNL, Regular Rate and Rhythm Respiratory: Yes: WNL, Regular, CTA Bilaterally Gastrointestinal: Yes: WNL ...Rectal Exam: Yes: WNL Renal/: Yes: WNL ....Post : Yes: Uterus firm, Uterus non-tender, Slight lochia rubra Breast(s): Yes: WNL Musculoskeletal: Yes: WNL Extremities: Yes: WNL Edema: No Integumentary: Yes: WNL Wound/Incision: Yes: Clean/Dry, Well Approximated, Sutures Intact Neurological: Yes: WNL, Alert, Oriented ...Motor Strength: WNL Psychiatric: Yes: WNL, Alert, Oriented Labs: CBC, BMP 01/31/19 06:46 Delivery - Delivery Section: Repeat, Low Flap Transverse Type of Anesthesia: Spinal Episiotomy/Laceration: None EBL (cc): 500 Delivery, Single - Stages of Labor Date of Delivery: 01/28/19 Time of Delivery: 09:59 Time Placenta Delivered: 10:00 Placenta: Yes: Expressed - Condition of Infant Corporate Consultant/Freelance Data Entry Present: Yes Name: John Shearer Gender: Female Weight: 8 lb 10 oz Position: Right, OA Total Hours ROM (Hrs/Mins): 2 min - 5 Minutes Total Score: 9 1 Minute Total Score: 9 - [place] Feeding Plan Initial Plan: Elected not to breastfeed exclusively throughout hospitalization Benefits of Exclusively reinforced: Yes Discharge Summary Problems reviewed: Yes Reason For Visit: C SECTION Procedures: Principal: repeat LST c/s Hospital Course: uneventful Condition: Stable - Instructions Diet, Activity, Other Instructions: regular diet, no intercourse . if fever, pain, heavy vaginal bleeding call md follow up office 1 week Referrals: Alida Hand MD [Staff Physician] - Disposition: HOME - Home Medications Comprehensive Discharge Medication List: Ambulatory Orders Comb No.42/Folic Acid [Prena1 Chew Tablet] 1.4 mg PO DAILY 01/28/19
[2019-01-31 15:42] VITALS: BP 112/60; PULSE 82; TEMP 97.9
--- NOTE | 2019-02-05 16:29 | PATH ---
Surgical Pathology Report Patient Name: LOLI NOEL Med. Rec. #: [id number] /Age/Gender: 1990 (Age: 29) / F Account: [id number] Location: [facility] OBS/GEODESIST Taken: 01/28/2019 Received: 01/29/2019 Reported: 02/05/2019 Physicians: Carolyn Arguello M.D. Specimen(s) Received PLACENTA Clinical History at 39.6 weeks, history of POS, asthma, 1IAB Final Diagnosis PLACENTA, SECTION: 668 G THIRD TRIMESTER PLACENTA WITH TRIVASCULAR UMBILICAL CORD AND UNREMARKABLE PLACENTAL MEMBRANES. Electronically Signed Shanthi Schuster M.D. Gross Description The specimen is received fresh labeled placenta and is a 668 gram, 21.0 x 19.5 x 3.0 cm. placenta with attached membranes and umbilical cord. The attached membranes are zapata, translucent with focal opacities and insert marginally. The umbilical cord measures 12.5 cm. in length and averages 1.4 cm. in diameter. The cord inserts eccentrically, 6 cm. to the nearest margin. No true knots or strictures are identified. Cut surface of the umbilical cord reveals 3 vessels. The surface is prince-blue with minimal fibrin deposition and appropriate caliber vessels. The maternal surface is red-brown with focal defects. Sectioning reveals red-brown, spongy parenchyma. No lesions are identified. Alliances Consultant sections are submitted in three cassettes as follows: 1- membrane rolls and umbilical cord; 2-3- full thickness sections of placenta. 02/03/201902/03/2019
== END 2019-01-31 14:05 | disposition home or self-care (01) | DRG 788 ==
LOC: JLDR 07:05 → J3W 12:15
PROVIDERS: ADMIT Obstetrics & Gynecology; ATTEND Obstetrics & Gynecology
PROC: 10D00Z1 Extraction of Products of Conception, Low, Open Approach (ICD-10-PCS; principal; 2019-01-28)
DX: O34.211 Maternal care for low transverse scar from previous cesarean delivery (principal); N85.8 Other specified noninflammatory disorders of uterus; O99.02 Anemia complicating childbirth; Z3A.39 39 weeks gestation of pregnancy; Z37.0 Single live birth
CPT/HCPCS: 36415; 36600; 82803; 82962; 85025; 85384; 85610; 85730; 88307-TC; 90686

== ENCOUNTER 2021-07-09 19:39 | Emergency (ER) | payer OTHER ==
[2021-07-09 20:10] VITALS: BMI 30.6
[2021-07-09] MEDS ORDERED: ONDANSETRON 4 MG/2 ML VIAL IVPUSH ONE (20:53)
[2021-07-09] MEDS ORDERED: SODIUM CHLORIDE 0.9% 500 ML INFUS.BAG IV ONE (20:53)
[2021-07-09] MEDS ORDERED: ONDANSETRON 4 MG/2 ML VIAL ONE (20:58)
[2021-07-09 21:06] LABS: BASO % 0.5 % (0-2.0); EOS % 0.1 % (0-4.5); HEMATOCRIT 38.7 % (32.4-45.2); HEMOGLOBIN 12.8 GM/dL (10.7-15.3); LYMPH % 12.8 % (8-40); MCH 28.2 pg (25.7-33.7); MCHC 33.2 g/dl (32.0-36.0); MEAN PLT VOLUME 8.7 fl (7.5-11.1); NEUT % 80.6 % (42.8-82.8); PLATELET COUNT 290 10^3/uL (134-434); RBC 4.55 M/mm3 (3.60-5.2); RDW 14.4 % (11.6-15.6); WHITE BLOOD COUNT 10.5 K/mm3 (4.0-10.0)
[2021-07-09] MEDS ORDERED: METOCLOPRAMIDE HCL INJECTION 10 MG/2 ML VIAL IVPUSH ONE (21:10)
[2021-07-09] MEDS ORDERED: DEXTROSE 5%-LACTATED RINGERS 1,000 ML IV SCH (21:15)
[2021-07-09 21:24] LABS: ALBUMIN 3.8 g/dl (3.4-5.0); BLOOD UREA NITROGEN 7.5 mg/dL (7-18); CALCIUM 9.3 mg/dL (8.5-10.1); MAGNESIUM 2.5 mg/dL (1.8-2.4)
[2021-07-09 21:27] LABS: CREATININE 0.6 mg/dL (0.55-1.3)
[2021-07-09 21:29] LABS: BILIRUBIN,TOTAL 1.5 mg/dL (0.2-1); TOT PROT 7.8 g/dl (6.4-8.2)
[2021-07-09] MEDS ORDERED: METOCLOPRAMIDE HCL INJECTION 10 MG/2 ML VIAL ONE (21:33)
[2021-07-09 23:22] LABS: EPI CELLS 18 /uL (0-25.1); HYALINE CASTS 2 /uL (0-3.1); URINE APPEARANCE CLEAR; URINE BACTERIA 407 /uL (0-1359); URINE BILIRUBIN NEGATIVE (NEGATIVE); URINE COLOR DK YELLOW; URINE GLUCOSE (UA) 3+ (NEGATIVE); URINE KETONE 4+ (NEGATIVE); URINE LEUK ESTERASE NEGATIVE (NEGATIVE); URINE NITRITE NEGATIVE (NEGATIVE); URINE PROTEIN TRACE (NEGATIVE); URINE RBC 202 /uL (0-23.9); URINE WBC 11 /uL (0-25.8)
[2021-07-09] MEDS ORDERED: SODIUM CHLORIDE 1,000 ML IV STA (23:24)
[2021-07-10 00:56] VITALS: BP 134/72; PULSE 68; TEMP 98.9
== END 2021-07-10 02:01 | disposition home or self-care (01) ==
LOC: JER 19:39
PROC: 3E033GC Introduction of Other Therapeutic Substance into Peripheral Vein, Percutaneous Approach (ICD-10-PCS; principal; 2021-07-09)
PROC: 3E033GC Introduction of Other Therapeutic Substance into Peripheral Vein, Percutaneous Approach (ICD-10-PCS; 2021-07-09)
PROC: 3E0337Z Introduction of Electrolytic and Water Balance Substance into Peripheral Vein, Percutaneous Approach (ICD-10-PCS; 2021-07-09)
DX: O21.1 Hyperemesis gravidarum with metabolic disturbance (principal); O20.0 Threatened abortion
CPT/HCPCS: 36415; 76830-TC; 80053; 81003; 83735; 84702; 85025; 86850; 86900; 86901; 87086; 99284-25